=== PATIENT | male | born 1970 | race Native Hawaiian/Other Pacific Islander ===

== ENCOUNTER → 2017-08-16 | Outpatient (CLI) | payer BC ==
[~2017-08-16] MED LIST: DIOVAN PO; DIOVAN160 MG; METFORMIN; MOBIC15 MG PO; NAPROSYN500 MG PO; NEURONTIN 300300 M1 PO; NORCO PO; PRAVASTATIN
--- NOTE | 2017-08-31 08:34 | PAINCON ---
[address] [address] PAIN MANAGEMENT CONSULTATION Name: KARLIETIFFANY [facility]: [facility] CAS[facility]an Herman#: [id number] Admission: 08/16/17 Attend Phys: Lauren Steele MD Discharge: Date of : 72 Report #: [id number] THIS REPORT FOR: //name// CC: BRITTANEY Steele DATE OF SERVICE: 08/16/2017 PRIMARY PHYSICIAN: The patient has no family physician. FOLLOWUP HISTORY: The pain was improved for some time after the injection. Has noted a worsening and recurrence of the pain and discomfort. 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 He states that he does lots of ____, climbing on items and notes that this can exacerbate his discomfort. He has had no new trauma. No change in bowel or bladder function. He has noticed a return of pain and discomfort with pain radiating down the right leg, posterior calf and down into his feet. He rates the pain as 4/10 at this juncture. He recently has had the flu. He was given antibiotic. He stopped taking this antibiotic yesterday. He was suffering from a urine infection. He feels that Meloxicam is helpful. He does not recall taking Neurontin or gabapentin in the past. He is concerned that his pain still reoccurs. He is contemplating taking some time off to let his back heal for about 6 months. He feels that he would get a prolonged healing status at this juncture. He has not had back surgery or he is contemplating back surgery at this juncture. ALLERGIES: No known drug allergies. MEDICATIONS: Meloxicam 15 mg daily, Diovan 180 mg, pravastatin, metformin. PHYSICAL EXAMINATION: VITAL SIGNS: Blood pressure 152/91, heart rate 74, respiratory rate 16, room air saturation 97%. Height 5 feet 7 inches, weight 243 pounds, BMI is 38.1, temperature 97.4. The patient has noted some improvement in his ear discomfort. HEENT: Otherwise, unremarkable. Atraumatic. No JVD. HEART: Regular rate. LUNGS: Clear. The patient does have a little bit of nasal congestion. BACK: Low back has some right buttocks pain and discomfort radiating down into the right leg and calf, note some slight weakness in the leg, which give secondary to pain. Muscle strength, left leg 5/5. No step-offs are noted in the low back area. Notes some increased discomfort with bending, sitting, standing, left and right lateral rotation. IMPRESSION: 1. Right low back pain involving the L5-S1 nerve root with numbness, weakness and tenderness involving the left calf [place] [address] PAIN MANAGEMENT CONSULTATION Name: TIFFANY ZIEGLER [id number] Admission: 08/16/17 Attend Phys: Lauren Steele MD Discharge: Date of : 72 Report #: [id number] 2. Status post carpal tunnel release. 3. The patient feels that he has a resolving ear infection. 4. The patient states that he is probably getting over the flu 5. History of diabetes. RECOMMENDATIONS: We discussed treatment options with the patient. Risks and benefits of an epidural steroid injection were again reviewed. Possible complications were discussed. Possibility of infection, increased muscle soreness, bleeding, spine, headache, nerve trauma and increase muscle discomfort were explained. Given that the patient is recently getting off of an antibiotic and feels that he is getting over the flu. We will postpone the injection for 1 week. Hopefully, the patient will have fully recovered at this juncture from his illness. We have discussed the possible complications associated with use of steroid medications and their effect on the body. When you have flu or infection. The patient is considering taking some time off, hopefully to let his "back heal." He feels that may be a 6 month period of time to let it heal would be reasonable and beneficial. He will follow up with his primary care physician in that regard. We would like to thank you for letting us participate in his care. He will return for an epidural steroid injection in 1 week. <ELECTRONICALLY SIGNED> By: Lauren Steele MD 08/31/17 0834 [id number] [id number]. Magnus Steele MD /[facility]
== END ==
LOC: M.PC 01:35
DX: E11.9 Type 2 diabetes mellitus without complications (principal); M79.671 Pain in right foot

== ENCOUNTER → 2017-08-23 | Outpatient (CLI) | payer BC ==
--- NOTE | 2017-08-31 08:34 | PAINCON ---
[address] [address] PAIN MANAGEMENT CONSULTATION Name: TIFFANY ZIEGLER Room: [facility] ANITA LovingAmaya#: [id number] Admission: 08/23/17 Attend Phys: Lauren Steele MD Discharge: Date of : 72 Report #: [id number] THIS REPORT FOR: //name// CC: FAM unknown Torin Steele DATE OF SERVICE: 08/23/2017 FOLLOWUP COMPLAINT: Here for an injection. FOLLOWUP HISTORY: The patient is a 47-year-old gentleman, who has been seen in the pain clinic in the past because of lumbar radiculopathy. He was seen last week because of pain and discomfort, which he is experiencing and radiating down into his right leg with numbness, weakness, and tenderness. These pains improve each time he undergoes lumbar epidural steroid injection. The weather has changed. The flu is pretty rampant now. The patient's son had the flu. He received it and has passed it on to his . He continues to have pain and discomfort, which is radiating down into his right leg with numbness, weakness, and makes it quite difficult for him to work. He is experiencing a sharp, burning, radiating, feeling down in the posterior portion of his right leg. The longer he works on his leg more problematic and painful it has been. He was on an antibiotic because of the flu last week. He has completed that. He feels that he has passed the flu stages and is in recovery. He has returned today to undergo a lumbar epidural steroid injection. His pain is usually improved significantly after the injection. He notes that if he goes to work too early after the injection, he does not get as an effective improvement. He feels that after the injection today to refrain from working for the next 2 days. We would give him the greatest chance for success. ALLERGIES: No known drug allergies. MEDICATIONS: Meloxicam 15 mg daily, Diovan 180 mg, pravastatin, metformin. PHYSICAL EXAMINATION: VITAL SIGNS: Blood pressure 139/82, pulse 80, respiratory rate 16, room air saturation 95%. Height 5 feet 7 inches, weight 244 pounds, BMI is 38.2, temperature 98.2. GENERAL: The patient is well-developed, well-nourished white male. Appearance: The patient does not seem febrile or appear ill. Orientation: Alert and oriented. Affect is appropriate. HEENT: Atraumatic. Extraocular eye muscles intact. Hearing appropriate. NECK: Without JVD or masses. LUNGS: Clear. HEART: Regular rate. ABDOMEN: [place] [address] PAIN MANAGEMENT CONSULTATION Name: WALKERTIFFANY Garcias Room: [facility]#: [id number] Admission: 08/23/17 Attend Phys: Lauren Steele MD Discharge: Date of : 72 Report #: [id number] BACK: Some low back pain with pain radiating down into the right buttocks. The patient is sitting in the chair, leaning to his left to take the pressure off the right buttocks area. Notes some slight weakness in his leg. Walks with a slight antalgic gait. IMPRESSION: 1. Right low back pain involving the L5-S1 nerve root with numbness, weakness, tenderness involving the left calf and down into his foot. 2. Status post flu virus. The patient's symptoms have waned. His is currently undergoing some flu symptomatology. 3. Status post carpal tunnel release. 4. The patient feels that he has had an improvement in his ear infection. 5. History of diabetes. The patient continues to monitor his blood sugar and we will monitor his blood sugar level after the injection. RECOMMENDATIONS: We discussed treatment options with the patient. Risks and benefits of an epidural steroid injection were again reviewed. Possible complications of the procedure were discussed. They include but are not limited to infection, increased muscle soreness, headache, bleeding, spinal headache, nerve damage. Also discussed the patient's recent flu symptoms. He is not having any of these. He feels that he has had resolution of the flu virus. He continued and took all of his remaining antibiotic. We will proceed with a lumbar epidural steroid injection. The patient can feels that if he goes to work too early, he gets less of a benefit from the injection. He would like to remain home for 2 days after the injection. I think this is reasonable. He has a job where he does quite a bit of bending, lifting, and this could complicate his recovery. PROCEDURE NOTE: The patient was taken to the procedure area. He was assisted onto the table. His back was cleanse with a Betadine solution. It was allowed to dry. Fluoroscopy was used to find and identify the L5-S1 area. An anterior, posterior as well as a lateral imaging technique was used. 0.25% bupivacaine was infiltrated into the area. A 17-gauge Tuohy with loss of resistance technique was used to gain access to the epidural space. After appropriate placement, a total of 80 mg Depo-Medrol, 40 mg triamcinolone, and 2 mL of 0.25% bupivacaine was injected. The patient tolerated the procedure well. A Band-Aid was placed in the site. There was no appreciable bleeding. The patient was then taken to the recovery room where he remained for an appropriate amount of time. He will follow up in the future as needed. He will return to work on 08/26. He will call us if he has any problems with his medications. We would like to thank you for letting us participate in his care. We hope he continues to improve. <ELECTRONICALLY SIGNED> By: Lauren Steele MD 08/31/17 0834 [id number] [id number]. Magnus Steele MD /PMT
== END | disposition home or self-care (01) ==
LOC: M.PC 01:57
DX: M54.16 Radiculopathy, lumbar region (principal); G89.29 Other chronic pain; Z20.828 Contact with and (suspected) exposure to other viral communicable diseases; Z98.890 Other specified postprocedural states; Z86.39 Personal history of other endocrine, nutritional and metabolic disease; Z79.899 Other long term (current) drug therapy

== ENCOUNTER → 2017-09-29 | Outpatient (CLI) | payer BC ==
--- NOTE | 2017-10-05 08:35 | PAINCON ---
[address] [address] PAIN MANAGEMENT CONSULTATION Name: TIFFANY ZIEGLER Room: [facility] ANITA DanielsMargarita#: [id number] Admission: 09/29/17 Attend Phys: Lauren Steele MD Discharge: Date of : 72 Report #: [id number] THIS REPORT FOR: //name// CC: FAM unknown Torin Steele DATE OF SERVICE: 09/29/2017 FOLLOWUP COMPLAINT: I would like to get another shot. The pain has started to return. FOLLOWUP HISTORY: The patient is a 47-year-old gentleman. He has undergone epidural steroid injections and gleaned benefits from these. He returns today indicating that his pain continues to be problematic involving the right leg. He has pain, which starts in the buttocks and radiates down to the posterior portion of his leg and calf. He has had epidural steroid injections in the past and found that they were quite beneficial. Today, he rates his pain as a 3/10. He has had problems with his back since 2013. Denies any new bowel or bladder dysfunction. Notes the pain can be problematic with activity, walking, sitting, standing, climbing stairs, sitting or standing for a prolonged period of time. This sometime impacts his ability to work. He denies any problems with the use of the meloxicam. He feels that his blood sugars have remained reasonably stable with these injections and not risen to a problematic level. ALLERGIES: No known drug allergies. REVIEW OF CURRENT MEDICATIONS: Indicate use of gabapentin 300 mg 1 p.o. t.i.d., Diovan in the past, metformin in the past, and pravastatin in the past. PAIN CLINIC ASSESSMENT: 1. The patient is not being treated for osteoarthritis or rheumatoid arthritis. 2. Height 5 feet 7 inches, weight 241 pounds, BMI is 38. 3. Vital signs: Blood pressure 119/76, heart rate 65, respiratory rate 16, room air saturation 95%, temperature 98.5. 4. Pain intensity rated as 3/10. 5. Fall risk. The patient has not fallen in the last 3 months. 6. Blood thinner. The patient is not on blood thinner. 7. History of hypertension. The patient is not being treated for hypertension. 8. Opioid therapy greater than 6 weeks. The patient is not on opioid therapy greater than 6 weeks. 9. Risk assessment tool. 10. Functional assessment tool indicates 41/70 in regards to general activity, mood, walking ability, normal work routines, relationships with others, sleep, enjoyment of life, ability to concentrate, and appetite. 11. The patient [place] [address] PAIN MANAGEMENT CONSULTATION Name: TIFFANY ZIEGLER [id number] Admission: 09/29/17 Attend Phys: Lauren Steele MD Discharge: Date of : 72 Report #: [id number] 12. The patient denies use of tobacco. 13. The patient denies alcoholic beverages. PHYSICAL EXAMINATION: General: The patient is well-developed male. Appearance, appears his stated age. Orientation, the patient is alert and oriented x 3. Affect is appropriate. HEENT: Normocephalic, atraumatic without problems. Extraocular eyes muscles intact. Hearing is within normal limits. No nasal congestion or complaints. Moist buccal membranes. NECK: Without masses or adenopathy. LUNGS: Clear to auscultation. HEART: Regular rate. ABDOMEN: Nontender. MUSCULOSKELETAL: Normal alignment without significant scoliosis, kyphosis, or lordosis. The patient walks with a slight antalgic gait with complaint of pain and discomfort in the right lower leg and discomfort down into the calf. Straight leg raise is positive on the right. Lumbar flexion, extension, left and right lateral rotation, left and right lateral bending are not very problematic, but does cause some increased discomfort in the right lower leg. Sensation to cold, pinprick, light touch are within normal limits in the left lower extremity. Notes some decreased sensation in the right in L5-S1 distribution. Muscle bulk is symmetrical bilaterally, judged to be 5/5 for the major muscle groups of the lower extremity. IMPRESSION: 1. Right low back pain with radiculopathy in the L5-S1 nerve root distribution with numbness, weakness, and tenderness in the left calf and into the foot. 2. Status post flu. The patient has recovered this nicely. 3. Status post carpal tunnel release. 4. The patient feels that his ear infection has resolved. 5. History of diabetes. The patient will continue to monitor his blood sugars. RECOMMENDATIONS: We discussed treatment options with the patient. At this juncture, he continues to have pain, which is problematic. It radiates down into his low back involving the right posterior thigh, calf, and down into his foot. He has positive straight leg raise. Continues to take gabapentin and finds that this medication is helpful. We will continue with that medication. Also, he would like to proceed with an epidural steroid injection today. Risks and benefits of the procedure were again reviewed with the patient. They include infection, increased muscle soreness, headache, bleeding, nerve damage, or no improvement in pain or worsening of pain. The patient elects to proceed. PROCEDURE NOTE: The patient was placed in the prone position. He was then positioned in the correct area on the table. His back was sterilely cleansed with a Betadine solution. It was allowed to dry. Fluoroscopy was used to find [facility] [address] [place] [address] PAIN MANAGEMENT CONSULTATION Name: TIFFANY ZIEGLER Room: [facility]#: [id number] Admission: 09/29/17 Attend Phys: Lauren Steele MD Discharge: Date of : 72 Report #: [id number] and identify the L5-S1 area. Anterior and posterior imaging was used as well as lateral viewing with fluoroscopy. After the trigger point was noted. A 0.25% bupivacaine was infiltrated into this area. A 17-gauge Tuohy with loss of resistance technique was used to gain access to the epidural space. There was no CSF, heme or paresthesia. Total of 80 mg Depo-Medrol, 40 mg triamcinolone, and 2 mL of 0.25% bupivacaine was injected. The patient tolerated the procedure well. A Band-Aid was placed. There was no bleeding. The patient was then advanced and taken to the recovery room. He remained there for an appropriate amount of time. He will follow up in the future as needed. A script for gabapentin 300 mg 1 p.o. t.i.d. has been written for with 2 refills. We would like to thank you for letting us participate in his care. We hope he continues to improve. <ELECTRONICALLY SIGNED> By: Lauren Steele MD 10/05/17 0835 [id number]. Magnus Steele MD /[facility]
== END | disposition home or self-care (01) ==
LOC: M.PC 02:38
DX: M54.17 Radiculopathy, lumbosacral region (principal); I10 Essential (primary) hypertension

== ENCOUNTER → 2019-02-22 | Outpatient (CLI) | payer BC ==
[~2019-02-22] MED LIST changes: +MEDROLDOSEPACK PO
--- NOTE | ~2019-02-22 | PAINCON ---
[address] [address] PAIN MANAGEMENT CONSULTATION Name: KARLIETIFFANY Room: [facility] ANITA LoivngMargaritaCharlesMargarita#: [id number] Admission: 02/22/19 Attend Phys: Lauren Steele MD Discharge: Date of : 72 Report #: [id number] THIS REPORT FOR: //name// CC: Lauren Calderón DATE OF SERVICE: 02/22/2019 CHIEF COMPLAINT: Worsening of the pain down in my leg. FOLLOWUP HISTORY: The patient is a 48-year-old gentleman who has been followed in the pain clinic because of chronic lumbar radiculopathy. He has undergone epidural steroid injections. He works on a regular basis. He has been experiencing pain, which has been radiating down into the posterior portion of his buttock. He is walking with a limp because of the pain. He has been finding it very difficult to perform at work because of the severity of his pain. He has increased pain with activities of daily living such as walking, sitting, standing, climbing stairs, bending and lifting. Finds his medications provide some benefit. He has used hot and cold as well as rest. Epidural steroid injections have been quite beneficial and provided him 100% relief for a number of months. His pain has gradually returned and he rates as an 8-9/10 today. He would like to have another injection. Because of the severity of his pain, he is unable to participate in work at [employer]. ALLERGIES: No known drug allergies. CURRENT MEDICATIONS: Gabapentin 300 mg t.i.d., Diovan in the past, metformin in the past, pravastatin in the past. PAIN CLINIC ASSESSMENT/PQRS: 1. The patient is not being treated for osteoarthritis or rheumatoid arthritis. 2. Height 5 feet 7 inches, weight 225 pounds, BMI 35.5. 3. VITAL SIGNS: Blood pressure 128/69, heart rate 75, respiratory rate 16, room air saturation 96%, temperature 98.3. 4. Pain intensity 8-9/10. 5. Fall history: The patient has not fallen in the last 3 months. 6. Blood thinner. The patient is not on a blood thinning medication. 7. Hypertension. The patient is not being treated for hypertension. 8. Opioids greater than 6 weeks. The patient receives gabapentin to help control his pain. 9. Functional assessment tool . 10. Recreational drug use. The patient denies use of recreational drugs. 11. Tobacco: The patient denies use of tobacco. 12. Alcohol: The patient denies use of alcoholic beverages on a regular basis. PHYSICAL EXAMINATION: [address] [place] [address] PAIN MANAGEMENT CONSULTATION Name: TIFFANY ZIEGLER Room: [facility]#: [id number] Admission: 02/22/19 Attend Phys: Lauren Steele MD Discharge: Date of : 72 Report #: [id number] GENERAL: The patient is a well-developed, well-nourished gentleman who is alert and oriented x 3. His affect is appropriate. Speech is fluent. HEENT: Normocephalic, atraumatic. Extraocular eye muscles intact. Sclerae nonicteric. Mucous membranes are moist. NECK: Without adenopathy or JVD. HEART: Regular rate. S1, S2. ABDOMEN: Nontender. Bowel sounds present. MUSCULOSKELETAL: Upper extremity muscle strength judged to be 5/5 for the major muscle groups in the upper extremity. The patient is without significant scoliosis, kyphosis or lordosis. He has complained of pain that is radiating down into his back involving his right leg. He is walking with a limp because of this. Has difficulty bending over without worsening of pain and discomfort secondary to a positive straight leg raise. IMPRESSION: 1. Right low back pain with radiculopathy in the L5-S1 nerve root distribution with numbness, tingling and weakness involving the calf. 2. Status post carpal tunnel release in the past. 3. History of diabetes. The patient will continue to monitor his blood sugars regarding to possible evaluation because of steroid injections. RECOMMENDATIONS: We discussed treatment options with the patient. Risks and benefits of the procedure were discussed. They include but are not limited to infection, worsening of pain, marked muscle soreness, bleeding, nerve trauma, spinal headache and the patient elects to proceed. PROCEDURE NOTE: The patient was taken to the procedure area. He was then assisted in getting on the examination table. His back was sterilely prepped with a Betadine solution. Fluoroscopy using anterior, posterior as well as lateral viewing were implemented. The patient's back was sterilely prepped at the L5-S1 areas using a midline approach. A 0.25% bupivacaine was infiltrated at L5-S1. A 17-gauge Tuohy with loss of resistance technique was then used to gain access to the epidural space at L5-S1. Aspiration was negative. Total of 80 mg Depo-Medrol, 40 mg triamcinolone and 2 mL of 0.25% bupivacaine was injected. The patient was provided with a Medrol Dosepak to take in the interim should he have exacerbation of his pain and unable to get into the Pain Clinic in a timely manner. He was also given a script for gabapentin 300 mg 1 p.o. t.i.d. We would like to thank you for letting us participate in his care. A total of 10 seconds fluoroscopy time was used. By: 1449 [id number]. Magnus Steele MD /nt
== END | disposition home or self-care (01) ==
LOC: M.PC 05:09
DX: M54.16 Radiculopathy, lumbar region (principal); G89.29 Other chronic pain; Z98.890 Other specified postprocedural states; Z86.39 Personal history of other endocrine, nutritional and metabolic disease; Z79.899 Other long term (current) drug therapy

== ENCOUNTER → 2019-03-29 | Outpatient (CLI) | payer BC ==
--- NOTE | ~2019-03-29 | PAINCON ---
[address] [address] PAIN MANAGEMENT CONSULTATION Name: KARLIETIFFANY Room: [facility] ANITA LovingMargaritaCharlesMargarita#: [id number] Admission: 03/29/19 Attend Phys: Lauren Steele MD Discharge: Date of : 72 Report #: [id number] THIS REPORT FOR: //name// CC: Lauren Calderón DATE OF SERVICE: 03/29/2019 CHIEF COMPLAINT: Return of back pain. HISTORY: The patient is a 48-year-old gentleman who has been seen in the pain clinic because of lumbar radiculopathy. He has undergone epidural steroid injections in the past and gleaned benefits from these. He returns today indicating that his pain has reoccurred. He has been playing soccer. He has noticed that pain in the lower portion of his back continues to radiate down into the right lower extremity. He has returned today with hopes of undergoing an epidural steroid injection to help quell his pain. He was given a script for gabapentin at the last visit. He has not used this one yet. He was started in the near future. Overall, he feels that his pain is greater than 50% improved when he does do the injections. Notes that activities as well as walking can exacerbate his pain. He has noted some improvement with use of massage, heat, cold and with his medications. ALLERGIES: No known drug allergies. CURRENT MEDICATIONS: Gabapentin has been written. The patient will restart this in the near future, Diovan in the past, metformin in the past. PAIN CLINIC ASSESSMENT AND PQRS: 1. The patient is not being treated for osteoarthritis or rheumatoid arthritis. 2. Height 5 feet 7 inches, weight 225 pounds, BMI is 35. 3. Vital signs: Blood pressure 139/89, heart rate 68, respiratory rate 16, room air saturation 97%, temperature 98.1. 4. Pain intensity 7/10. 5. Fall history: The patient has not fallen in the last 3 months. 6. Blood thinner. The patient is not on a blood thinning medication. 7. Hypertension. The patient is not being treated for hypertension. 8. Opioids greater than 6 weeks. The patient has received medications from one source, the pain clinic. 9. Functional assessment tool /. 10. Recreational drug use. The patient denies use of recreational drugs. 11. Tobacco: The patient denies use of tobacco. 12. Alcohol. The patient denies use of alcoholic beverages on a regular basis. PHYSICAL EXAMINATION: The patient is a well-developed gentleman. He is alert and oriented x 3. His affect is appropriate. [place] [address] PAIN MANAGEMENT CONSULTATION Name: TIFFANY ZIEGLER Room: [employer].#: [id number] Admission: 03/29/19 Attend Phys: Lauren Steele MD Discharge: Date of : 72 Report #: [id number] HEENT: Normocephalic, atraumatic. Extraocular eye muscles intact. Sclerae nonicteric. Mucous membranes are moist. NECK: Without adenopathy or JVD. HEART: Regular rate. S1, S2. ABDOMEN: Nontender. Bowel sounds present. MUSCULOSKELETAL: Without significant scoliosis, kyphosis or lordosis. The patient has pain and discomfort in lower portion of his back with pain radiating down into the right L5-S1 dermatomal distribution with increased pain and discomfort. Positive straight leg raise. The patient is walking with a limp because of the pain and discomfort. IMPRESSION: 1. Right low back pain with radiculopathy with L5-S1 dermatomal root irritation with numbness and tingling involving the calf with weakness. 2. Status post carpal tunnel release in the past. 3. History of diabetes. The patient will continue to monitor his blood sugars for the possible elevation secondary to the injections. RECOMMENDATIONS: We discussed treatment options with the patient. Risks and benefits of an epidural steroid injection were discussed. They include but are not limited to infection, worsening of pain, no improvement in pain, muscle soreness, bleeding, nerve damage, spinal headache. The patient elects to proceed. PROCEDURE NOTE: The patient was taken to the procedure area. He was then assisted in getting on the examination table. His back was sterilely prepped. A pillow was placed under the abdomen to bolster and improve positioning. Fluoroscopy using anterior, posterior as well as lateral viewing were implemented. A 25-gauge needle was then advanced into the L5-S1 area. This was midline. A 17-gauge Tuohy with loss of resistance technique was used to gain access to the epidural space using a right paramedian approach through the midline area. Aspiration was negative. A total of 80 mg Depo-Medrol, 40 mg triamcinolone and 2 mL of 0.25% bupivacaine was injected. The patient tolerated the procedure well. There were no complications. He remained in the pain clinic for an appropriate amount of time. The patient will try to get the gabapentin and start this medication with the hope that this will help control and improve his pain condition. We would like to thank you for letting us participate in his care. We hope he continues to improve. By: [id number]. Magnus Steele MD /nt
== END | disposition home or self-care (01) ==
LOC: M.PC 03-22 09:20
DX: M54.16 Radiculopathy, lumbar region (principal); G89.29 Other chronic pain; E11.9 Type 2 diabetes mellitus without complications; Z98.890 Other specified postprocedural states; Z79.899 Other long term (current) drug therapy

== ENCOUNTER → 2019-09-25 | Outpatient (CLI) | payer BC ==
--- NOTE | 2019-10-12 09:31 | PAINCON ---
[address] [address] PAIN MANAGEMENT CONSULTATION Name: TIFFANY ZIEGLER Room: [facility] Jeremiah.#: [id number] Admission: 09/25/19 Attend Phys: Lauren Steele MD Discharge: Date of : 72 Report #: [id number] THIS REPORT FOR: //name// cc: Idalia Calderón NP, Tammy NP ~ THIS REPORT FOR: //name// CC: Lauren Calderón DATE OF SERVICE: 10/11/2019 CHIEF COMPLAINT: The pain has returned and is going down into my right leg. HISTORY: The patient is a 49-year-old gentleman who has been followed in the pain clinic because of chronic back pain. He has had problems with lumbar radiculopathy. Pain, generally radiates down into the right leg. He notes pain at this point is 7/10. It radiates down into his right leg to the level of the knee. He notes increased pain and discomfort with bending. He has used gabapentin and finds this medication is somewhat helpful. He would like to proceed with another epidural steroid injection. He has not had any problems with the procedures in the past and has gleaned greater than 50% improvement. He notes that walking can be problematic. He has used heat, cold and massage to help with the discomfort. ALLERGIES: No known drug allergies. CURRENT MEDICATIONS: Gabapentin 300 mg 1 p.o. t.i.d., Diovan 180 mg. PAIN CLINIC ASSESSMENT AND PQRS: 1. The patient is not being treated for osteoarthritis or rheumatoid arthritis. 2. Height 5 feet 7 inches, weight 232 pounds, BMI is 36.0. 3. Vital Signs: Blood pressure is 146/95, heart rate 54, respiratory rate 16, room air saturation is 96%, temperature 97.9. 4. Pain intensity is 7/10. 5. Fall history: The patient has not fallen in the last 3 months. 6. Blood thinner. The patient is not on a blood thinning medication. 7. Hypertension. The patient states he is being treated for hypertension. 8. Opioids greater than 6 weeks. The patient received medication from one source. 9. Risk assessment tool, low for opioid use. 10. Recreational drug use: The patient denies. 11. Tobacco: The patient denies. 12. Alcohol. The patient denies frequent use of alcoholic beverages. PHYSICAL EXAMINATION: [place] [address] PAIN MANAGEMENT CONSULTATION Name: TIFFANY ZIEGLER Room: [facility]#: [id number] Admission: 09/25/19 Attend Phys: Lauren Steele MD Discharge: Date of : 72 Report #: [id number] GENERAL: The patient is a well-developed, well-nourished white male. Appears his stated age. He is alert and oriented x 3. His affect is appropriate. Speech is fluent. HEENT: Normocephalic, atraumatic. Extraocular eye muscles intact. Sclerae nonicteric. Mucous membranes are moist. NECK: Without adenopathy or JVD. HEART: Regular rate. S1, S2. ABDOMEN: Nontender. Bowel sounds present. MUSCULOSKELETAL: Without significant scoliosis, kyphosis or lordosis. The patient has pain and discomfort that is radiating down the posterior portion of his right leg involving the L5-S1 dermatomal distribution. Has a positive straight leg raise. The patient walks with a slight antalgic gait. IMPRESSION: 1. Right low back pain with pain radiating down the L5-S1 dermatomal root causing irritation with numbness and tingling in the calf. 2. Status post carpal tunnel release in the past. 3. History of diabetes. The patient will continue to monitor his blood sugars. RECOMMENDATIONS: We discussed treatment options with the patient. Risks and benefits of an epidural steroid injection were discussed. They include, but are not limited to infection, worsening pain, no improvement in pain, nerve damage and the patient elects to proceed. PROCEDURE NOTE: The patient was taken to the procedure area. He was then assisted in getting on examination table. His back was sterilely prepped with a Betadine solution. A 0.25% bupivacaine was infiltrated. A 17-gauge Tuohy with loss of resistance technique at the L5-S1 area was used to gain access to the epidural space. This had been anesthetized with 0.25% bupivacaine. Total of 80 mg Depo-Medrol, 40 mg triamcinolone and 2 mL of 0.25% bupivacaine was injected. The patient's pain decreased from 7 to 2 at the time of discharge. He will follow up in the future as needed. We would like to thank you for letting us participate in his care. We hope he continues to improve. <ELECTRONICALLY SIGNED> By: Lauren Steele MD 10/12/19 [id number]. Magnus Steele MD /[facility]
== END | disposition home or self-care (01) ==
LOC: M.PC 08:20
DX: M54.16 Radiculopathy, lumbar region (principal); G89.29 Other chronic pain; I10 Essential (primary) hypertension; E11.9 Type 2 diabetes mellitus without complications; Z98.890 Other specified postprocedural states; Z79.899 Other long term (current) drug therapy